=== PATIENT | female | born 1965 | race Caucasian/White ===

== ENCOUNTER → 2018-12-27 | Outpatient (CLI) | payer BC ==
--- NOTE | 2018-12-27 12:03 | XR ---
Abdomen HISTORY: Mid ureteral stones Single frontal view of the abdomen No comparisons There is a calcification adjacent to the right sacral ala measuring approximately 4 mm. Calcification in the left hemipelvis towards the midline measures only approximately 2 mm. Possible injection gran uloma noted. Just inferior to the left L5 transverse process question an oval calcification measuring 5 mm however this may be related to the transverse process. In the right paraspinal location just ce phalad to the transverse process there is a calcification suspected measuring 3 to 4 mm. Overlying maylin wel gas may obscure underlying detail. Lung bases not included on exam. Possible injection granulomas . IMPRESSION: Indeterminate calcifications are present bilaterally. Additional findings above.
== END | disposition home or self-care (01) ==
LOC: RADXRMAIN 11:25
PROVIDERS: ATTEND Urology
DX: R93.5 Abnormal findings on diagnostic imaging of other abdominal regions, including retroperitoneum (principal)
CPT/HCPCS: 74018